=== PATIENT | male | born 1950 | race Caucasian/White ===

== ENCOUNTER 2016-10-03 13:07 | Day surgery (SDC) | payer OTHER ==
[~2016-10-03] VITALS: Ht 180.3 cm; Wt 90.5 kg
[~2016-10-03 13:07] MED LIST: HYDR25TA4 PO; TADA10TA PO
[2016-10-03] MEDS ORDERED: fentaNYL-PF 50 mCg/mL 2 mL Inj ONE (13:08)
[2016-10-03] MEDS ORDERED: Ondansetron 2 mg/mL 2 mL Inj ONE (13:08)
[2016-10-03] MEDS ORDERED: Propofol 10,000 mCg/mL 20 mL Inj ONE (13:08)
[2016-10-03] MEDS ORDERED: Lidocaine PF 1% 30 mL Inj ONE (13:08)
[2016-10-03] MEDS ORDERED: Dexamethasone 4 mg/mL Inj ONE (13:08)
[2016-10-03] MEDS ORDERED: Lactated Ringer's 1,000 ML IV ONE (13:45)
[2016-10-03 13:51] VITALS: BP 144/91; PULSE 61; RESP 16; O2SAT 99
[2016-10-03] MEDS ORDERED: CeFAZolin Inj 2 gm / 50mL D5W IV ONE (16:27)
[2016-10-03] MEDS ORDERED: Lactated Ringer's 1,000 ML IV SCH (17:03)
[2016-10-03] MEDS ORDERED: Lactated Ringer's 500 ML IV PRN (17:03)
[2016-10-03] MEDS ORDERED: Lidocaine 1%-Epi 1:100,000 20 mL Inj INJ ONE (17:03)
[2016-10-03] MEDS ORDERED: EPHEDrine Sulfate 50 mg/mL Inj IVPUSH PRN (17:05)
[2016-10-03] MEDS ORDERED: Ondansetron 2 mg/mL 2 mL Inj IVPUSH PRN (17:05)
[2016-10-03] MEDS ORDERED: Labetalol 5 mg/mL 4 mL Inj IV PRN (17:05)
[2016-10-03] MEDS ORDERED: MetoCLOpramide 5 mg/mL 2 mL Inj IVPUSH PRN (17:05)
[2016-10-03] MEDS ORDERED: fentaNYL-PF 50 mCg/mL 2 mL Inj IVPUSH PRN (17:05)
[2016-10-03] MEDS ORDERED: Atropine 0.4 mg/mL Inj IVPUSH PRN (17:05)
[2016-10-03] MEDS ORDERED: Phenylephrine 10,000 mCg/mL Inj IVPUSH PRN (17:05)
--- NOTE | 2016-10-03 17:05 | PCM.HPANE ---
Patient Data Surgeon Admitting Provider: Attending Provider:Julio Velázquez DO Primary Care Physician:Nadine Other Provider:Justin Crisostomo Anesthesia Reason for Visit Right Hand Laceration With Laceration Of Extensor Ht/WT & BMI Height (Feet): 5 Height (Inches): 11 Weight (Kilograms): 90.5 Body Mass Index 27.00 Allergies Coded Allergies: No Known Allergies (Unverified , 10/03/16) Past Anesthesia History Anesthesia History: Denies:: Anesthesia Reactions, Malignant Hyperthermia Diabetes History Hx Diabetes?: No MRSA MRSA: No Medications Hypertension Medication: Yes (HCTZ) Home Meds Incl Beta Nupur: No Reported Medications Tadalafil (Cialis)10 Mg [id number] Mg PO PRN PRN ED Ref 0 As directed by physician 10/02/16 Hydrochlorothiazide 25 Mg [id number] Mg PO DAILY 30 Days Ref 0 10/02/16 History History of ENT Problems?: No HEENT History: Denies:: Abnormal Airway Cataracts Difficult Intubation Dysphagia Glaucoma Hearing Problem Sinus Problem TMJ Denture Type: None Teeth Condition: Within Normal Limits Hx of Heart Problems?: Yes Cardiovascular History: Positive for:: Hypertension Denies:: Heart Murmur Other History/Comments Greater than 4 mets. No CP or hx [place] Hx of Respiratory Problem?: No Respiratory History: Denies:: Use of C-PAP Machine Hx Neurologic Problems?: No Hx of GI Problems?: Yes Other GI Pertinent History: S/P UMBILICAL HERNIA RPR Hx of Problems?: Yes Other Pertinent History: ED Male Hx: Denies:: Prostate Problems Scrotal Mass Testicular Surgery Skin History: Positive for:: History Skin Disorders? (HEALING WOUND RT LONG FINGER) Denies:: Pressure Ulcers Hx Musculoskeletal Problems?: Yes Musculoskeletal History: Positive for:: Musculoskeletal Trauma (HX LAC RT LONG FINGER (DOI 09/16/16) ) Hx of Psycho/Social Problems?: No Hx Surgeries?: Yes (UMBILICAL HERNIA RPR) Hx Any Other Health Problems?: Yes Other History: Denies:: Cancer Endocrine Disease Hospitalization Thyroid Disease Hx Diabetes: No Hx Alcohol Use: YesAlcoholic Drinks Per Day: 28 CANS BEER/WEEKHave You Smoked inLast 12 mo: No Stop/Bang S-Snoring: Do You Snore Loudly: No T-Tired: feel tired, fatigued: No O-Obsered: Observed not breath: No P-Blood Pressure: treated: Yes B- Body Mass Index > 35 kg/m2: No A- Age over 50: Yes N- Neck Large Circumference: No G- Gender Male: Yes RICARDO Total Score: 3 Risk Assessment Category Category 1A: Patient has history of documented sleep apnea, and HAS NOT received any narcotic, sedative or anesthesia administration during this stay. Category 1B: Patient has history of documented sleep apnea, and HAS received any narcotic , sedative or anesthesia administration during this stay Category 2: Patient has SUSPECTED Obstructive Sleep Apnea, and HAS received any narcotic , sedative or anesthesia administration during this stay. Category 3: Patient has SUSPECTED Obstructive Sleep Apnea and HAS NOT received narcotic, sedative or anesthesia administration during this stay. Category 4: Outpatient in Procedural Areas with known sleep apnea or who screen positive for High Risk via the STOP/BANG questionnaire. Exam Exam Vital Signs Vital Signs Date Time Temp Pulse Resp B/P Pulse Ox O2 Delivery O2 Flow Rate FiO2 10/03/16 13:51 36.6 61 16 144/91 99 Room Air General Appearance: Alert, Oriented X3 HEENT/AIRWAY: MP 2, Neck Movement (FROM) Lungs: Clear to Auscultation, Clear to Percussion Heart: Exam Unremarkable, Regular Rate/Rhythm Meds/Labs/Diagnostics Admission Meds Current Medications Lactated Ringer's (Lr) 1,000 ml @ ud STK-MED ONCE IV Last administered on t 13:45; Start 10/03/16 at 13:45; Stop 10/03/16 at 13:46; Status DC Plan Impression Patient chart reviewed, patient interviewed and anesthestic plan with risks, benefits, and alternatives discussed, and informed consent obtained. ASA Physical Status: ASA2 Mod Systemic Disease Anesthetic Plan: GA Bene/Risks/Altern/Consents: Yes HP Complete Prior to Induction: Yes Alberto Hoang MD Oct 03, 2016 16:30
[2016-10-03 17:35] VITALS: BP 103/78; PULSE 70; RESP 16; O2SAT 95
[2016-10-03 17:40] VITALS: BP 146/81; PULSE 69; RESP 13; O2SAT 95
[2016-10-03] MEDS ORDERED: HYDROcodone-APAP 7.5-325 mg Tablet PO PRN (17:40)
--- NOTE | 2016-10-03 17:40 | PCM.ANEP1 ---
Post Anesthesia PACU Phase 1 Assessment Vital Signs Vital Signs Date Time Temp Pulse Resp B/P Pulse Ox O2 Delivery O2 Flow Rate FiO2 10/03/16 13:51 36.6 61 16 144/91 99 Room Air Anesthetic Administered: GA Level of Alertness: Awake, talking GERARD's with Equal Strength: Yes Pain: No Nausea or Vomiting: No CV Function & Hydration Stable: No Airway Device: Oxygen Delivery: Room Air Lungs: Clear to Auscultation, Clear to Percussion PACU Phase 2 Assessment Complications: No Follow up Care: No Patient Instructions Provided: N/A Comments See anesth record for PACU VS. PACU VSS Alberto Hoang MD Oct 03, 2016 17:40
[2016-10-03 18:00] VITALS: BP 112/78; PULSE 68; RESP 16; O2SAT 98
[2016-10-03 18:47] VITALS: BP 148/88; PULSE 64; RESP 16; O2SAT 96
--- NOTE | 2016-10-05 07:17 | OP ---
[address] [address] OPERATIVE REPORT PATIENT: JAMEEL WHITESIDE : 1950 MR#: [id number] ADMIT: 10/03/2016 JOB ID: [id number] CORRECTED REPORT: DATE OF SURGERY: 10/03/2016 PREOPERATIVE DIAGNOSIS(ES): Right middle finger zone V extensor tendon laceration. POSTOPERATIVE DIAGNOSIS(ES): Right middle finger zone V extensor tendon laceration. PROCEDURE: Repair of right middle finger zone V extensor tendon laceration. SURGEON: Julio Velázquez D.O. ANESTHESIA: General. HISTORY: The patient is a pleasant 66-year-old male who sustained a laceration on the dorsal aspect of his hand with a broken porcelain bath handle. [place] was [place] a vacation rental. This happened two weeks prior to his presentation. It was not until a few days later he felt a pop and pain with limited extension of the middle finger. He was seen at outlying facility and referred to me for further evaluation and treatment. Clinically he demonstrated signs of a zone V middle finger extensor tendon laceration. Discussed with the patient the risks, benefits, alternatives and indications to proceed with a direct repair of the tendon and to start formal occupational therapy a few days after the patient was visiting here from [place] and will be returning home in a few days but wanted to have the repair done prior. He understood the risks include, but not limited to neurovascular injury, tendon injury, infection, failure of fixation, stiffness, persistent pain, all of which may require further intervention. The patient had all questions answered. Consent was signed and placed in the chart. PROCEDURE IN DETAIL: The patient was brought to the operative suite and placed supine on the operating room table. Surgical time-out was performed. Everyone in the room was in agreement. After appropriate anesthesia was obtained, a right upper arm tourniquet was applied and the right upper extremity was prepped and draped in a sterile fashion. Right upper extremity was then exsanguinated and tourniquet inflated to 250 mmHg. The patient's previous laceration was extended in an S-shaped fashion. Dissection was carried down to the extensor apparatus. The patient demonstrated a transverse laceration through the substance of the extensor digitorum communis in zone V. Copious irrigation was then performed. The tendon ends were reapproximated with extension of the middle finger at the MCP joint. A 4-0 fiber loop was then used as a core suture repair for a six strand core suture repair. This was followed by utilization of a 6-0 nylon in a cross stitch fashion for a epitendinous stitch. Excellent repair without any tension or gapping was appreciated. Further irrigation was performed followed by closure of the skin with 4-0 nylon in a simple interrupted fashion. The patient was then placed into a volar splint keeping the MCPs fully extended. ESTIMATED BLOOD LOSS: Less than 1 cc. COMPLICATIONS: None. DISPOSITION: The patient tolerated the procedure well. Anesthesia was reversed. The patient was transferred back to recovery. The patient is to follow with occupational therapy tomorrow to have an ICAM brace fashioned to use during the day and to start working on range of motion of the hand and middle finger. At night he is also to have another brace that keeps the MCP joints fully extended. He is to followup with a hand surgeon and occupational therapist as soon as he returns to [place] next week. Corrected by MCKENZIE 10/08/16 at 9:42am DOS.
== END 2016-10-03 23:59 | disposition home or self-care (01) ==
LOC: SAS 13:07
PROVIDERS: ATTEND Orthopaedic Surgery
DX: S66.821A Laceration of other specified muscles, fascia and tendons at wrist and hand level, right hand, initial encounter (principal); I10 Essential (primary) hypertension; W22.09XA Striking against other stationary object, initial encounter; Y93.89 Activity, other specified; Y92.89 Other specified places as the place of occurrence of the external cause; Y99.8 Other external cause status; Z87.891 Personal history of nicotine dependence
CPT/HCPCS: 26418; J0690; J1100; J2405; J3010; J7120